=== PATIENT | female | born 1940 | race Caucasian/White ===

== ENCOUNTER 2019-12-24 14:51 | Emergency (ER) | payer MEDICARE, OTHER ==
[~2019-12-24] VITALS: Ht 165.1 cm; Wt 56.0 kg
[2019-12-24 14:57] VITALS: BP 114/84
[2019-12-24] MEDS ORDERED: CYCL-1 PO (16:25)
[2019-12-24] MEDS ORDERED: ketorolac trometh inj. 60 MG/2 ML VIAL IM ONE (16:25)
[2019-12-24] MEDS ORDERED: ketorolac trometh. 30mg/ml inj. IM ONE (16:30)
== END 2019-12-24 17:37 | disposition home or self-care (01) ==
LOC: ER 14:51
DX: M62.838 Other muscle spasm (principal); M19.90 Unspecified osteoarthritis, unspecified site; Z60.2 Problems related to living alone; Z79.899 Other long term (current) drug therapy
CPT/HCPCS: 96372; 99283; J1885